=== PATIENT | female | born 1995 | race Two or more races ===

== ENCOUNTER 2018-06-10 18:52 | Emergency (ER) | payer MEDICAID ==
[~2018-06-10] VITALS: Ht 162.6 cm; Wt 65.3 kg
[2018-06-10] MEDS ORDERED: PRILOSEC OTC20 MG ORAL (18:59)
[2018-06-10] MEDS ORDERED: EC-NAPROSYN375 MG PO (18:59)
--- NOTE | 2018-06-10 19:45 | NUR ---
ED Nurse Note: PT PLACED IN CHAIRS FROM [employer], PT IS AWAKE, ALERT AND ORINENTED X 4, PT HERE WITH C/O STIFFNESS AND PAIN TO NECK AREA FOR PAST WEEK AFTER POSSIBLY SLEEPING WRONG ON NECK, PT DENIES INJURY OR ANY OTHER COMPLAINTS, ALSO C/O PAIN RADIATING TO ARMS AND LEGS.
[2018-06-10] MEDS ORDERED: ROBAXIN-750750 MG PO (20:19)
--- NOTE | 2018-06-10 20:19 | Emergency Room Report ---
History of Present Illness General Chief Complaint: General Complaint Source: Patient Present Illness HPI 23-year-old female presents emergency department complaining of intermittent episodes of discomfort in the left arm associated with numbness and tingling sensation. Patient denies weakness in the extremities she also reports that she will have some pain in the left regular area. Patient denies appreciable trauma or fall she states that her didn't go completely numb after she fell asleep on it last weekend. Patient states that each time there is an episode the symptoms completely resolve after several minutes. Patient denies history of anxiety or neck injury. Patient does state that 2 weeks ago she did feel a sharp pain in the left side of her neck when she was laying on the ground in an unusual position. No specific aggravating or relieving factors at this time. The pt states she is currently not having symptoms. Allergies: Coded Allergies: No Known Allergies (Unverified , 06/10/18) Patient History Past Medical History: see triage record Past Surgical History: none Pertinent Family History: none Last Menstrual Period: 05/26/18 Reviewed Nursing Documentation: PMH: Agreed; PSxH: Agreed Nursing Documentation-PMH Past Medical History: No Stated History Review of Systems All Other Systems: negative except mentioned in HPI Physical Exam Vital Signs Date Time Temp Pulse Resp B/P (MAP) Pulse Ox O2 Delivery O2 Flow Rate FiO2 06/10/18 18:56 98.2 95 18 131/84 95 Room Air Sp02 EP Interpretation: reviewed, normal General Appearance: no apparent distress, alert, GCS 15, non-toxic Head: normocephalic, atraumatic Eyes: bilateral eye normal inspection, bilateral eye PERRL ENT: hearing grossly normal, normal voice Neck: full range of motion, no bony tend, tender lateral - left lateral SCM ttp , mild swelling noted. 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 Marques is my supervising Physician whom patient management has been discussed with. Diagnostic Impression: Primary Impression: Paresthesia of left arm Additional Impression: Muscle strain ER Course 23-year-old female presents emergency department complaining of intermittent episodes of discomfort in the left arm associated with numbness and tingling sensation. Patient denies weakness in the extremities she also reports that she will have some pain in the left regular area. Patient denies appreciable trauma or fall she states that her didn't go completely numb after she fell asleep on it last weekend. Patient states that each time there is an episode the symptoms completely resolve after several minutes. Patient denies history of anxiety or neck injury. Patient does state that 2 weeks ago she did feel a sharp pain in the left side of her neck when she was laying on the ground in an unusual position. No specific aggravating or relieving factors at this time. The pt states she is currently not having symptoms. Ddx considered but are not limited to neuropathy, paresthesia, electrolyte imbalance, cardiac dysrhythmia, stroke, DVT, cyanocobalamin deficiency. nerve palsy, neuritis, anxiety just to name a few Vital signs: are WNL, pt. is afebrile H&PE are most consistent with benign paresthesia versus possible anxious reaction. No evidence of focal neurological deficit. ORDERS: none required at this time, the diagnosis is clinical ED INTERVENTIONS: None required at this time. --Pt not currently having symptoms - D/w pt. to follow up with Neurologist if conservative treatment does not relieve symptoms or for further evaluation. DISCHARGE: At this time pt. is stable for d/c to home. Will provide printed patient care instructions, and any necessary prescriptions. Care plan and follow up instructions have been discussed with the patient prior to discharge. Last Vital Signs Date Time Temp Pulse Resp B/P (MAP) Pulse Ox O2 Delivery O2 Flow Rate FiO2 06/10/18 18:56 98.2 95 18 131/84 95 Room Air Status: improved Disposition: HOME, SELF-CARE Condition: Stable Scripts Methocarbamol* (ROBAXIN-750*) 750 Mg Tablet 750 MG PO QID for 7 Days, #28 TAB 0 Refills Prov: Isabel Dale 06/10/18 Departure Forms: Return to Work Return to Work Date: Jun 11, 2018 Work Restrictions: No Heavy Lifting Other Restrictions: Limited use of left arm. Return to Full Activity: Jun 18, 2018 Patient Instructions: Muscle Strain, [id number], Paresthesia, [id number] Additional Instructions: Take medications as directed. Follow up with a Primary Care Provider in 3-5 days, even if your symptoms have resolved. --Please review list of primary care clinics, if you do not already have a primary care provider Return sooner to ED if new symptoms occur, or current symptoms become worse. Do not drink alcohol, drive, or operate heavy machinery while taking Robaxin ( Muscle Relaxers) as this may cause drowsiness. - Please note that this Emergency Department Report was dictated using [employer] man technology software, occasionally this can lead to erroneous entry secondary to interpretation by the dictation equipment. Isabel Dale Jun 10, 2018 20:19
[2018-06-10 20:30] VITALS: BP 131/84
--- NOTE | 2018-06-10 20:35 | NUR ---
ED Nurse Note: PT BEING D/C TO HOME, GOVEN PRESCRIPTION, RE-VERBALIZES [employer] [facility], PT IS AWAKE, ALERT AND ORIENTED X 4, AMBULATORY WTH STEADY GAIT, NO CP, NO SOB, NAD NOTED DURING D/C TO HOME.
== END 2018-06-10 20:40 | disposition home or self-care (01) ==
LOC: EMR 19:30
DX: S46.812A Strain of other muscles, fascia and tendons at shoulder and upper arm level, left arm, initial encounter (principal); R20.0 Anesthesia of skin; X58.XXXA Exposure to other specified factors, initial encounter; Y92.89 Other specified places as the place of occurrence of the external cause
CPT/HCPCS: 99282